=== PATIENT | female | born 1935 | race Caucasian/White ===

== ENCOUNTER 2017-12-25 14:14 | Emergency (ER) | payer MEDICARE, OTHER ==
[2017-12-25 14:31] VITALS: BP 126/59; PULSE 90; RESP 15; TEMP 98.9; O2SAT 100
[2017-12-25] MEDS ORDERED: DIATRIZOATE MEGLUM/DIATRIZOATE SOD 9 ML CUP PO ONE (15:15)
--- NOTE | 2017-12-25 15:23 | PD ---
HPI Chief Complaint: Wood Shop Teacher Problem Time Seen by Provider: 14:34 Travel History International Travel<30 days: No Contact w/Intl Traveler<30days: No Traveled to known affect area: No History of Present Illness HPI Patient is an 82-year-old female presents to emergency room for evaluation of PEG TUBE. Patient is demented and unable to provide hpi. As per custodial, they were concerned about PEG tube malfunction as she has fluid oozing from around her peg tube. PFSH Past Medical History Anemia: Yes Anxiety: Yes Depression: Yes Dementia: Yes Diabetes: Yes Patient Takes Glucophage: No GERD: Yes Hypertension: Yes Insomnia: Yes Renal Failure: Yes Past Surgical History Abdominal Surgery: Yes (G-TUBE PLACEMENT) Social History Alcohol Use: No (UTO) Tobacco Use: No (UTO) Substance Use: No Allergies-Medications (Allergen,Severity, Reaction): Coded Allergies: gentamicin (Verified Allergy, Unknown, 12/25/17) Reported Meds & Prescriptions Reported Meds & Active Scripts Active Reported Duoneb (Ipratropium-Albuterol Neb) 0.5-2.5 Mg/3 Ml Neb 1 Nebule INH Q4HR NEB PRN Vitamin C (Ascorbic Acid) 250 Mg Tab 500 Mg PEG DAILY Lisinopril 10 Mg Tab 10 Mg PEG DAILY Aspirin 81 Mg Chew 81 Mg CHEW DAILY Lantus Inj (Insulin Glargine) 1,000 Unit/10 Ml Vial 10 Units SQ BID Novolog Inj (Insulin Aspart) 1,000 Unit/10 Ml Vial 0 SQ DIRECTED Sliding Scale as directed. Protonix (Pantoprazole Sodium) 40 Mg Tab 40 Mg PEG DAILY Hydromorphone (Hydromorphone HCl) 2 Mg Tab 2 Mg PO Q4H PRN Levaquin (Levofloxacin) 500 Mg Tablet 500 Mg PO DAILY Fibercon (Calcium Polycarbophil) 625 Mg Tab 625 Mg PEG DAILY Clindamycin (Clindamycin HCl) 300 Mg Cap 300 Mg PO Q6H Reglan (Metoclopramide HCl) 10 Mg Tab 10 Mg PEG DAILY Review of Systems ROS Limitations: Unresponsive, Other: (patient demented, nonverbal) Physical Exam Narrative GENERAL: NAD SKIN: Focused skin assessment warm/dry. HEAD: Atraumatic. Normocephalic. EYES: Pupils equal and round. No scleral icterus. No injection or drainage. ENT: No nasal bleeding or discharge. Mucous membranes pink and moist. NECK: Trachea midline. No JVD. CARDIOVASCULAR: Regular rate and rhythm. No murmur appreciated. RESPIRATORY: No accessory muscle use. Clear to auscultation. Breath sounds equal bilaterally. PEG tube in place GASTROINTESTINAL: Abdomen soft, non-tender, nondistended. Hepatic and splenic margins not palpable. MUSCULOSKELETAL: No obvious deformities. No clubbing. No cyanosis. No edema. Data Data Last Documented VS Vital Signs Date Time Temp Pulse Resp B/P (MAP) Pulse Ox O2 Delivery O2 Flow Rate FiO2 12/25/17 15:40 97.9 94 18 131/66 (87) 99 Room Air Orders Orders Abdomen, Kub Only (12/25/17 ) Diatrizoate Liq ( Gastropam Lited) (12/25/17 15:15) MDM Medical Decision Making Medical Screen Exam Complete: Yes Emergency Medical Condition: Yes Medical Record Reviewed: Yes Differential Diagnosis peg tube malfunction vs misplacement Narrative Course KUB to comfirm peg tube placement was ordered Last Impressions Abdomen X-Ray 12/25/17 0000 Signed Impressions: CONCLUSION: Gastrostomy tube in place in the stomach. Peg tube in place. patient safe to be [facility] at [facility] [place] Diagnosis Primary Impression: Leaking PEG tube Patient Instructions: General Instructions Additional Instructions: PEG Tube is in place and is functional Please follow up with your Assistant Art Director as well as your primary care doctor Disposition: 01 DISCHARGE HOME Condition: Stable Estelita Elena DO Dec 25, 2017 15:23
[2017-12-25 15:40] VITALS: BP 131/66; PULSE 94; RESP 18; TEMP 97.9; O2SAT 99
[2017-12-25] MEDS ORDERED: REGL10TA5 PEG (15:50)
[2017-12-25] MEDS ORDERED: LISI10TA3 PEG (15:50)
[2017-12-25] MEDS ORDERED: FIBE625T PEG (15:50)
[2017-12-25] MEDS ORDERED: LEVA500T33 PO (15:50)
[2017-12-25] MEDS ORDERED: LANTUS2P SQ (15:50)
[2017-12-25] MEDS ORDERED: HYDR2TAB PO (15:50)
[2017-12-25] MEDS ORDERED: NOVOLOGP2 SQ (15:50)
[2017-12-25] MEDS ORDERED: VITA250T3 PEG (15:50)
[2017-12-25] MEDS ORDERED: ASPI-516 CHEW (15:50)
[2017-12-25] MEDS ORDERED: PROT40TA PEG (15:50)
[2017-12-25] MEDS ORDERED: CLIN300C5 PO (15:50)
[2017-12-25] MEDS ORDERED: IPRASOL INH (15:50)
--- NOTE | 2017-12-25 15:52 | RADRPT ---
EXAM DATE: 12/25/2017 3:47 PM EDT AGE/SEX: 82 years / Female INDICATIONS: Confirm Peg tube placement with gastrografin. CLINICAL DATA: This is the patient's initial encounter. Patient reports that signs and symptoms have been present for 1 day and indicates a pain score of Nonresponsive. MEDICAL/SURGICAL HISTORY: Stroke. None. COMPARISON: No prior [facility] exams available for comparison. FINDINGS: A single AP supine view of the abdomen was obtained. The right-sided the abdomen and lower pelvis we re cut off the exam. There is a gastrostomy tube in place with contrast in the stomach. There is no e vidence of extravasation. The bowel gas pattern is unremarkable with residual contrast in the colon d istally. CONCLUSION: Gastrostomy tube in place in the stomach. Electronically signed by: William Duron MD 12/25/2017 3:51 PM EDT
[2017-12-25 17:36] VITALS: BP 119/86
== END 2017-12-25 17:45 | disposition home or self-care (01) ==
LOC: NEPC 14:14
DX: K94.23 Gastrostomy malfunction (principal); D64.9 Anemia, unspecified; F41.9 Anxiety disorder, unspecified; F32.9 Major depressive disorder, single episode, unspecified; F03.90 Unspecified dementia, unspecified severity, without behavioral disturbance, psychotic disturbance, mood disturbance, and anxiety; E11.9 Type 2 diabetes mellitus without complications; K21.9 Gastro-esophageal reflux disease without esophagitis; I10 Essential (primary) hypertension; N19 Unspecified kidney failure
CPT/HCPCS: 74018; 99283